=== PATIENT | male | born 1985 | race Asian ===

== ENCOUNTER 2019-05-30 10:08 | Outpatient (CLI) | payer BC ==
--- NOTE | 2019-05-30 10:52 | ULT ---
GALLBLADDER ULTRASOUND: HISTORY:Abnormal gallbladder ultrasound in [place]. Previous exam not available for comparison FINDINGS: The liver demonstrates homogeneous echotexture without focal mass or intrahepatic biliary ductal dila tation. No gallstones, gallbladder wall thickening or pericholecystic fluid are seen. There is a 4 mm nonshad owing echogenic nonmobile focus arising from the wall of the gallbladder, consistent with polyp. The right kidney and pancreas are normal. The common duct [id number] in diameter. No free fluid is seen in the Zacarias's pouch. IMPRESSION: 4 mm gallbladder polyp
== END 2019-05-30 10:09 | disposition home or self-care (01) ==
LOC: SCSULT 10:08
PROVIDERS: ATTEND Family Medicine
DX: R93.2 Abnormal findings on diagnostic imaging of liver and biliary tract (principal); K82.4 Cholesterolosis of gallbladder
CPT/HCPCS: 76705